=== PATIENT | female | born 1955 | race Caucasian/White ===

== ENCOUNTER → 2017-01-08 | Outpatient (CLI) | payer BC ==
[~2017-01-08] MED LIST: ALLEGRA PO; ALPRAZOLAM PO; ASPIRINEC; CALCIUM 500 + D1 TAB; CALCIUM 600 + D1 TA1 PO; CALTRATE 600+D PO; COATED ASPIRIN325 M1 PO; COREG PO; DIOVAN PO; FOSAMAX; IMDUR PO; KCL PO; LASIX PO; LEVAQUIN750 MG PO; LIPITOR PO; LIPITOR40 MG PO; MELOXICAM15 MG PO; MULTI-VITAMIN1 EAC1 PO; NAPROXEN PO; OMEPRAZOLE20 M1 PO; PLAVIX; PROTONIX; ZETIA; ZETIA PO
--- NOTE | ~2017-01-08 | NM22 ---
[facility] A Service of [facility] & [facility] RADIOLOGY TEXT RESULTS PATIENT: DAYA BECERRA LOCATION: [facility] : 51 UNIT #: [id number] AGE: [address]: Adrian Capone MD SEX: F ORDER DR: [id number] [facility] [address] [place], [place] [address] [id number] O MR#: [id number] Acc #: [id number] NAME: DAYA BECERRA : 1955 SEX: F STUDY DATE/TIME: 01/08/2017 9:29 UNIT: [facility] ROOM: STUDY DESCRIPTION: NM Hepatobiliary W GB Pharm Attending Physician: Adrian Capone Jr., M.D. Referring Physician: Adrian Capone Jr., M.D. Ordering Physician: Adrian Capone Jr., M.D. Primary Care Physician: Gonzales Branch M.D. MEDICAL IMAGING REPORT This report is preliminary unless electronic signature is present EXAM HIDA scan with Kinevac, 01/08/2017 HISTORY Stomach "grumbling", diarrhea, right upper quadrant pain, bloating, abnormal coloration of bowel movements, nausea. Patient states symptoms began [address] abdomen and pelvis 07/29/2012. Right upper quadrant abdominal ultrasound 01/08/2017. FINDINGS Following the intravenous administration of 6.0 mCi technetium 99m Choletec, anterior planar images were obtained of the abdomen at 15 minute intervals for a 1 hour. Normal radiopharmaceutical uptake is demonstrated within the liver. The gallbladder is visualized within the first 60 minutes of imaging. Subsequently, 1.5 mcg of Kinevac was administered intravenously and a time activity curve was generated. The calculated gallbladder ejection fraction is 94%. IMPRESSION Normal HIDA scan with Kinevac. Ejection fraction 94%. Dictated by... Lin Jama M.D. THIS IS AN ELECTRONICALLY VERIFIED REPORT Lin Jama M.D. at 01/09/2017 6:13 AM YURIDIA/melissa TD: 01/08/2017 14:12 JOB #: [id number] [facility] A Service of [facility] & [facility] RADIOLOGY TEXT RESULTS PATIENT: DAYA BECERRA LOCATION: [facility] #: [id number] : 51 UNIT #: [id number] AGE: [address]: Adrian Capone MD SEX: F ORDER DR: MEDICAL IMAGING REPORT Page 1 of 1 COPY
--- NOTE | ~2017-01-08 | US6 ---
[facility] A Service of [facility] & [facility] RADIOLOGY TEXT RESULTS PATIENT: DAYA BECERRA LOCATION: [facility] : 51 UNIT #: [id number] AGE: [address]: Adrian Capone MD SEX: F ORDER DR: [id number] [facility] [address] [place], [place] [address] [id number] O MR#: [id number] Acc #: [id number] NAME: DAYA BECERRA : 1955 SEX: F STUDY DATE/TIME: 01/08/2017 8:40 UNIT: [facility] ROOM: STUDY DESCRIPTION: US Abdominal Limited Attending Physician: Adrian Capone Jr., M.D. Referring Physician: Adrian Capone Jr., M.D. Ordering Physician: Adrian Capone Jr., M.D. Primary Care Physician: Gonzales Branch M.D. MEDICAL IMAGING REPORT This report is preliminary unless electronic signature is present EXAM Right upper quadrant ultrasound 01/08/2017 HISTORY Right upper quadrant abdominal pain for 2 months. FINDINGS The liver is homogeneous in echotexture and demonstrates no cystic or solid mass lesions. The intrahepatic bile ducts are not dilated. The gallbladder is distended but demonstrates no evidence of cholelithiasis or wall thickening or pericholecystic fluid. The common duct is dilated to 9 mm. No obstructing mass or calculus is seen but the distal aspect of the common duct is obscured by bowel gas. If there is clinical concern for choledocholithiasis consider correlation with MRCP. The pancreas and right kidney are normal. IMPRESSION 1. The gallbladder is distended but demonstrates no evidence of cholelithiasis, gallbladder wall thickening or pericholecystic fluid. 2. There is no intrahepatic biliary ductal dilatation but the common duct is dilated to 9 mm. No obstructing mass or calculus is seen but the distal aspect of the common duct is obscured by bowel gas. If there is clinical concern for choledocholithiasis consider correlation with MRCP. Dictated by... George Schmidt M.D. THIS IS AN ELECTRONICALLY VERIFIED REPORT George Schmidt M.D. at 01/08/2017 5:14 PM KRT/meghanr TD: 01/08/2017 16:08 [facility] A Service of [facility] & [facility] RADIOLOGY TEXT RESULTS PATIENT: DAYA BECERRA LOCATION: [facility] #: [id number] : 51 UNIT #: [id number] AGE: [address]: Adrian Capone MD SEX: F ORDER DR: YANA #: [id number] MEDICAL IMAGING REPORT Page 1 of 1 COPY
== END | disposition home or self-care (01) ==
LOC: CGUS 08:18
DX: R10.11 Right upper quadrant pain (principal); K82.8 Other specified diseases of gallbladder
CPT/HCPCS: 76705; 78227; A9537; J2805

== ENCOUNTER → 2017-02-16 | Day surgery (SDC) | payer BC ==
--- NOTE | ~2017-02-16 | OR ---
Unit #: [id number] #: [id number] Patient: DAYA BECERRA [id number] [address] [place], [place] [address] [id number] O MR#: [id number] NAME: DAYA BECERRA. ROOM: Date of Procedure: 02/16/2017 Admission Date: 02/16/2017 Surgeon: Adrian Capone Jr., M.D. : 1955 Attending Physician: Adrian Capone Jr., M.D. Primary Care Physician: Gonzales Branch M.D. OPERATIVE REPORT INDICATIONS FOR PROCEDURE The patient is a 61-year-old white female with a known past history of breast cancer, who has recently had problems with some diarrhea, question maybe some colitis. She also has a known past history for colon polyps. She has had no recent colonoscopy. She is brought in this time for colonoscopy at her request. She has had her prep at home. She understands the procedure including the risks, including that of perforation and bleeding, and consents. PREOPERATIVE DIAGNOSIS Possible colitis, past history of colon polyps, rule out recurrence. POSTOPERATIVE DIAGNOSIS No evidence of any polyps. The patient was noted to have diverticulosis of the left colon and no colitis or other abnormalities. ANESTHESIA MAC anesthesia. PROCEDURE PERFORMED Flexible colonoscopy to the distal ileum. DESCRIPTION OF PROCEDURE The patient was positioned in Lu position with left side down. After being given MAC anesthesia. Digital rectal examination was performed, which revealed no palpable mass or tenderness. No blood or stool in the rectal ampulla. The Olympus colonoscope was advanced through the anal canal up the rectum and retroflexed down to the area of the anorectal region. There were no significant internal hemorrhoids. No evidence of any fissures. The scope was then straightened and passed up in the rectosigmoid, in the sigmoid and descending colon areas, around the splenic flexure and the transverse colon, around the hepatic flexure and ascending colon, down in the area of the cecum. The light from the tip of the scope could be seen transilluminating through right lower quadrant abdominal wall area. The scope was advanced up the distal ileum approximately 10 to 12 inches. There was no evidence of any ileitis or inflammatory bowel disease. The scope was slowly removed. There were no polyps, tumors, cancer, or AVMs. No evidence of any colitis or acute diverticulitis. There were multiple diverticula in the left colon. No evidence of any narrowing or obstruction. The scope was slowly removed. The patient tolerated the procedure well and discharged in satisfactory condition. Unit #: [id number] #: [id number] Patient: DAYA BECERRA Dictated by... Adrian Capone Jr., Maryjane AGUILERA/conrado TD: 02/16/2017 13:55 JOB #: [id number] OPERATIVE REPORT Page 1 of 1 X Adrian Capone MD X PROCEDURE OPERATIVE NOTE
== END | disposition home or self-care (01) ==
LOC: COPS 05:26
DX: K57.30 Diverticulosis of large intestine without perforation or abscess without bleeding (principal); I25.10 Atherosclerotic heart disease of native coronary artery without angina pectoris; I25.2 Old myocardial infarction; E78.5 Hyperlipidemia, unspecified; I10 Essential (primary) hypertension; K21.9 Gastro-esophageal reflux disease without esophagitis; M19.90 Unspecified osteoarthritis, unspecified site; Z86.010 Personal history of colon polyps; Z85.3 Personal history of malignant neoplasm of breast; Z87.891 Personal history of nicotine dependence; Z88.6 Allergy status to analgesic agent; Z88.8 Allergy status to other drugs, medicaments and biological substances; Z79.82 Long term (current) use of aspirin; Z79.899 Other long term (current) drug therapy; Z90.13 Acquired absence of bilateral breasts and nipples; Z98.890 Other specified postprocedural states
CPT/HCPCS: J2250